=== PATIENT | male | born 1995 | race Caucasian/White ===

== ENCOUNTER 2020-10-19 10:15 | Emergency (ER) | payer OTHER, SELFPAY ==
[2020-10-19 10:16] VITALS: BP 143/91; PULSE 78; RESP 16; TEMP 36.2; O2SAT 100; BMI 27.0
--- NOTE | 2020-10-19 11:21 | EX.ED.DYSGE1 ---
HPI History of Present Illness Chief Complaint: Lower Extremity Injury Narrative Narrative: Patient presents with laceration of the left knee. He was chain sawing and lost control nicked his left knee area. He has a large laceration. He is able to ambulate has no bony pain. Tetanus is not up-to-date. PFSH PFSH Home Medications cephalexin 500 mg PO Q12 #6 cap 10/19/20 [Rx Last Taken Unknown] Allergy/AdvReac Type Severity Reaction Status Date / Time No Known Allergies Allergy Verified 10/19/20 10:17 ROS ROS ED ROS Narrative Past medical history: none Medications: Reviewed Social history: Noncontributory Review of systems: Musculoskeletal: Laceration as in HPI Skin: Laceration as in HPI Neurological: No weakness or paresthesias Hematologic: No easy bleeding or easy bruising EXAM Physical Exam Narrative Exam Narrative: Physical exam General: Patient does not appear in significant distress . Head: Normocephalic, Atraumatic Neck: No C-spine tenderness Cardiovascular: Normal distal pulses Back: Nontender, Normal Inspection. Extremities: The left knee region and lower shows a diagonal laceration that is about 8 cm, there are 2 other lacerations 1.5 centimeters each next to it. The lacerations do not invade the fascia there is no pain with movement of the knee joint there is no effusion. Patient can ambulate well. Skin: Laceration as above Neurological: Normal strength and sensation Const Vital Signs: 10/19/20 10:16 Temperature 97.1 F L Temperature Source Temporal Pulse Rate 78 Respiratory Rate 16 Blood Pressure 143/91 H Blood Pressure Mean 108 Pulse Ox 100 Oxygen Delivery Method Room Air MDM MDM MDM Narrative Medical decision making narrative: Wound was sutured. Tetanus was updated. Because of the nature of the wound I put the patient on small dose of antibiotics. Procedures Lacerations lac: Length: 4.33 in Depth: Skin Shape: Stellate Prep: Shkarrie-Clens Laceration repair: Debrideded, Irrigated, Lidocaine, Local and Skin sutures Number of Sutures/Noemi: 16 Suture Information: Ethilon and - (3-0) Comment: This is a complex laceration, wound edges were revised, a total of 16 of the 3-0 nylon sutures were placed. Discharge Plan Triage Chief Complaint: Lower Extremity Injury ED Provider: Steven Perkins Dx/Rx/DC Orders Clinical Impression: Laceration of leg Instructions: ED Laceration: All Closures Prescriptions: New cephalexin 500 mg capsule 500 mg PO Q12 Qty: 6 RF: 0 Referrals: Vladimir Delaney DO [NON-STAFF] - 10-14 Days suture removal
[2020-10-19] MEDS: Cephalexin 250 MG Capsule 500 MG PO (11:28)
[2020-10-19] MEDS: Diphth,Pertuss(Acell),Tet Vac 0.5 ML Vial IM (11:28)
[2020-10-19] MEDS: Lidocaine 1% (20 ml mdv) 20 ML Vial INFILT (11:29)
== END 2020-10-19 13:26 | disposition home or self-care (01) ==
LOC: ED 11:43
PROVIDERS: Emergency Provider Emergency Medicine; PCP Family Medicine
DX: S81.012A Laceration without foreign body, left knee, initial encounter (principal); W31.2XXA Contact with powered woodworking and forming machines, initial encounter
CPT/HCPCS: 13121; 90715; 96372; 99285

== ENCOUNTER 2025-01-24 13:40 | Emergency (ER) | payer SELFPAY ==
[2025-01-24 13:41] VITALS: BP 131/70; PULSE 63; RESP 16; TEMP 36.5; O2SAT 100; BMI 25.9
--- NOTE | 2025-01-24 14:08 | EX.ED.UPPERE ---
HPI History of Present Illness Chief Complaint: Upper Extremity Injury PFSH PFSH Medical History no medical history Home Medications ?Medication ?Instructions ?Recorded ?Last Taken ?Type cephalexin 500 mg capsule 500 mg PO Q12 #6 caps 10/19/20 Unknown Rx Allergy/AdvReac Type Severity Reaction Status Date / Time No Known Allergies Allergy Verified 01/24/25 13:43 Family History no significant family his Surgical History no surgical history Social History Smoking Status: Never smoker EXAM Physical Exam Const Vital Signs: 01/24/25 13:41 Temperature 97.7 F L Temperature Source Oral Pulse Rate 63 Respiratory Rate 16 Blood Pressure 131/70 H Blood Pressure Mean 90 Pulse Ox 100 Oxygen Delivery Method Room Air MDM MDM MDM Narrative Medical decision making narrative: Patient eloped prior to my evaluation. Discharge Plan Triage Chief Complaint: Upper Extremity Injury ED Provider: John Jaime Dx/Rx/DC Orders Prescriptions: No Action cephalexin 500 mg capsule 500 mg PO Q12 Qty: 6 0RF Primary Care Provider: Michael Lehman Referrals: Michael Lehman MD [Primary Care Provider, Medical] Print Language: Spanish Disposition Disposition: Elopement
--- OUTSIDE RECORDS SUMMARY | 2025-01-24 14:15 | XMS RPT_ITS | CCD ---
Author Organization [facility] Care Team Providers Care Site Auditor Name Role Phone ISIS BELL Attending Unavailable ISIS BELL Primary Care Unavailable ISIS BELL Admitting Unavailable TOSHIA KOHLI PAC Admitting Unavailable TOSHIA KOHLI PAC Attending Unavailable JOEL TOSHIA FAVIO Primary Care Unavailable Joel RIOJAS, Toshia Fisher Unavailable [facility], . [facility] office Unavailable Michael Lehman MD Unavailable Piedad Velasquez MA Unavailable Unavailable Percy Finn LPN Unavailable Unavailable Problems Active Problems Problem Classification Problem Date Documented Da te Episodic/Chronic Abdominal pain (6 sources) Right lower quadrant pain; Translations: [Right lower quadrant pain] Onset: 11-20-2022 Episodic Appendicitis and other appendiceal conditions (1 source) Unspecified acute appendicitis; Translations: [Unspecified acute appendicitis] Onset: 11-20-2022 Episodic Conditions associated with dizziness or vertigo (4 sources) Dizziness; Translations: [Dizziness and giddiness] 03-23-2014 Episodic Fracture of upper limb (4 sources) Closed fracture of phalanx or phalanges of hand, unspecified 11-20-2022 Episodic Immunizations and screening for infectious disease (4 sources) Immunization due; Translations: [Encounter for immunization] 02-23-2023 Episodic Past or Other Problems Problem Classification Problem Date Documented Da te Episodic/Chronic Unclassified (2 sources) Abdominal pain - The onset of the abdominal pain has been sudden and has been occurring in a persistent (Patient reports a constant dull pain with instances of a severe, sharp pain at times) pattern for 3 days. The course has been increasing. The pain is described as a moderate sharp pain and dull ache. The pain is located in the right lower quadrant and does not radiate. The symptoms are aggravated by motion but have no relieving factors. The symptoms have been associated with vomiting (Patient reports vomiting the day the pain started. States that the vomiting happened after the pain started.), while the symptoms have not been associated with bloating, bloody stools, chest pain, constipation, diarrhea, dysuria, fever or nausea. Note for Abdominal pain: Patient denies any previous abdominal surgeries 11-20-2022 Unclassified (2 sources) Dizziness - The onset of the dizziness has been acute and has been occurring in a persistent pattern for 1 week. The course has been increasing. The dizziness is characterized as lightheadedness. There has been associated headache (on occasion), upper respiratory infection symptoms (slight) and visual changes (pressure behind eyes.), while there has been no associated nausea, vomiting, fever, tinnitus, ear pain, ear fullness or falling episodes. Note for Dizziness: Started symptoms a few days after returning from a 10 day trip to [facility]. Had ear pain while flying. No fevers 03-23-2014 Unclassified (2 sources) Fractured Thumb - Pt here today because he got hit last evening with a softball. Ball hit him right on right thumb. Parents took him to [facility] this morning and they did x-rays and told mom to f/u here for broken right thumb. X-rays with pt. Thumb is swollen and has decreased ROM to that thumb. 07-24-2011 Results Test Name Value Interpretation Reference Range Facil ity OPERATIVE PROCEDURESon 11-24 OPERATIVE PROCEDURES [facility] OPERATIVE REPORT NAME ACCOUNT SEX AGE ADMIT DISCHARGE PT MED. RECORD# NUMBER DATE DATE TYPE CHARLI, [id number] Rosemary 26 11/20/22 11/20/22 2 RAYMON [id number] ROOM: [facility] DATE OF : 1995 DICTATING PHYSICIAN: Isis Bell DATE OF SURGERY: November 20, 2022 SURGEON: Isis Bell MD TRANSPORTATION EQUIPMENT PAINTER: MICHEL Sykes ANESTHESIOLOGIST: Linda Aggarwal CRNA ANESTHETIC: Local anesthesia 1:1 mixture of 0.25% Marcaine plain and 1% lidocaine with epinephrine, approximately 37 mL were used. PREOPERATIVE DIAGNOSIS: POSTOPERATIVE DIAGNOSES: 1. Acute appendicitis. 2. Appendicolith. OPERATION PERFORMED: Laparoscopic appendectomy. COMPLICATIONS: ESTIMATED BLOOD LOSS: Less than 5 mL. FLUIDS GIVEN: 1000 mL of crystalloid. SPECIMEN: Vermiform appendix to Pathology. DISPOSITION: Stable to recovery. INDICATIONS: Raymon Augustin is a 26-year-old gentleman who came to the emergency room with abdominal pain and findings worrisome for appendicitis. DESCRIPTION OF OPERATION: After informed consent, intravenous fluids, and antibiotics, he was taken to the operating room. The patient was placed on the table in the supine position with adequate padding at pressure points. He was given anesthesia, prepped and draped in the usual sterile fashion and timeout and verification done Page 1 of 2 CHARLI RAYMON Operative Report RAYMON AUGUSTIN : 1995 appropriately. The abdomen was palpated, demarcated, and locally anesthetized at the trocar sites and the infraumbilical trocar placed with good visualization. The abdomen was gently insufflated and viewed with the laparoscope, and it was clear that there was an extremely dilated edematous, erythematous, and indurated vermiform appendix surrounded by omentum stuck up again the right lower quadrant wall. The suprapubic and left lower quadrant trocars were placed through anesthetized sites with good visualization. Then, the vermiform appendix was gently peeled away from the omentum and from the abdominal wall, and the base exposed nicely. A window was created with the [place] dissector. This window was at the base of the vermiform appendix, and through this the stapling/cutting device was placed, clamped, held for 1 minute and then fired. Then, the mesoappendiceal structures were likewise clamped, held for 1 minute, and then fired with the stapling/cutting device, and there appeared to be excellent hemostasis. The vermiform appendix was placed in an EndoCatch bag, placed to the side, and then the surgical site carefully inspected for excellent hemostasis. Short bursts of antibiotic irrigation were used and suctioned, and there was excellent hemostasis. The table was then leveled, and the trocar sites and the EndoCatch bag were removed with good visualization. The infraumbilical fascial edges were nicely approximated with #1 PDS and #1 Vicryl sutures, skin edges were nicely approximated with inverted interrupted 2-0 PDS through subcutaneous and subcuticular layers followed by Benzoin and Steri-Strips and sterile dressings. The patient tolerated the procedure well, was awakened, and will be sent to recovery room in good condition. The case will be discussed with the patient and spouse when he is more awake and alert. Pathology will be followed in my office, and followup wound care will be per my office. Dictated By: Isis Bell MD 11/20/22 18:58 JOB #: [id number] Transcribed By: am 11/21/22 07:54 Electronically signed by: E-Sign Dr. Isis Bell MD 11/24/22 18:48 Page 2 of 2 RAYMON AUGUSTIN Operative Report Normal [facility] CBC + DIFFon 11-20-2022 Baso # 0.00 x10EE3/UL Normal 0.00 - 0.10 [facility] Comment on above: Performed By: #### 2 [id number] #### [facility],[address] [place] [address] 17408 Basophils/100 WBC (Bld) 0.2 % Normal 0.0 - 2.0 [facility] Comment on above: Performed By: #### 2 45600 #### [facility],[address] [place] [address] CBC + DIFF Normal [facility] Comment on above: Result Comment: CBC- COMPLETE BLOOD COUNT Performed By: #### 2 55602 #### [facility],[address] [place] [address] EO # 0.10 x10EE3/UL Normal 0.00 - 0.50 [facility] Comment on above: Performed By: #### 2 55981 #### [facility],[address] [place] [address] 58636 Eosinophils/100 WBC (Bld) 0.6 % Normal 0.0 - 7.0 [facility] Comment on above: Performed By: #### 2 67119 #### [facility],[address] [place], [place] [id number] Erythrocyte distribution width (RBC) [Ratio] 12.8 % Normal 12.0 - 15.6 [facility] Comment on above: Performed By: #### 2 08830 #### [facility],[address] [place] [address] Hematocrit (Bld) [Volume fraction] 46.7 % Normal 40.0 - 52.0 [facility] Comment on above: Performed By: #### 2 89248 #### [facility],[address] [place] [address] Hemoglobin (Bld) [Mass/Vol] 16.0 g/dL Normal 13.0 - 17.5 [facility] Comment on above: Performed By: #### 2 37723 #### [facility],[address] [place] [address] Lymph # 1.20 x10EE3/UL Normal 0.80 - 2.80 [facility] Comment on above: Performed By: #### 2 40738 #### [facility],[address] [place] [address] Lymphocytes/100 WBC (Bld) 10.5 % Low 20.0 - 45.0 [facility] Comment on above: Performed By: #### 2 81966 #### [facility],[address] [place] [address] MANUAL DIFF N/A Normal [facility] Comment on above: Performed By: #### 2 23952 #### [facility],[address] [place] [address] MCH (RBC) [Entitic mass] 30 pg Normal 27 - 33 [facility] Comment on above: Performed By: #### 2 86008 #### [facility],[address] [place] [address] MCHC 34 X10 3 Normal 32 - 36 [facility] Comment on above: Performed By: #### 2 69579 #### [facility],[address] [place], [place] [address] MCV (RBC) [Entitic vol] 89 fL Normal 81 - 98 [facility] Comment on above: Performed By: #### 2 68261 #### [facility],[address] [place] [address] [place] # 0.90 x10EE3/UL Normal 0.20 - 1.00 [facility] Comment on above: Performed By: #### 2 16953 #### [facility],[address] [place] [address] MONOS % 8.5 % Normal 0.0 - 10.0 [facility] Comment on above: Performed By: #### 2 00146 #### [facility],[address] [place] [address] Morphology Odioln (Bld) [Interp] N/A Normal [facility] Comment on above: Performed By: #### 2 10867 #### [facility],[address] [place] [address] Neut # 8.80 x10EE3/UL High 1.50 - 7.10 [facility] Comment on above: Performed By: #### 2 97022 #### [place] [address] Neutrophils/100 WBC (Bld) 80.2 % High 46.0 - 76.0 [facility] Comment on above: Performed By: #### 2 77391 #### [place] [address] PLATELET 224 x10EE3/UL Normal 150 - 450 [facility] Comment on above: Performed By: #### 2 65455 #### [facility],[address] [place] [address] Platelet mean volume (Bld) [Entitic vol] 7.6 fL Normal 6.4 - 10.5 [facility] Comment on above: Result Comment: AUTO MATED DIFFERENTIAL Performed By: #### 2 25647 #### [place] [address] RBC 5.24 x 10EE6/UL Normal 4.50 - 6.00 [facility] Comment on above: Performed By: #### 2 87734 #### [facility],[address],[place] [address] WBC 11.0 x 10EE3/UL High 4.5 - 10.8 [facility] Comment on above: Performed By: #### 2 57282 #### [facility],[address] [place] [address] CMP with eGFRon 11-20-2022 AGE 26 years Normal [facility] Comment on above: Performed By: #### 2 75325 #### [facility],[address] [place] [address] Albumin [Mass/Vol] 4.4 g/dL Normal 3.4 - 5.0 [facility] Comment on above: Performed By: #### 2 91149 #### [facility],[address] [place] [address] 37677 Albumin/Globulin [Mass ratio] 1.1 {ratio} Normal 0.9 - 1.6 [facility] Comment on above: Performed By: #### 2 48083 #### [facility],[address] [place] [address] 76288 ALK PHOS 75 U/L Normal 46 - 116 [facility] Comment on above: Performed By: #### 2 39698 #### [facility],[address] [place] [address] 90359 ALT [Catalytic activity/Vol] 29 U/L Normal 16 - 63 [facility] Comment on above: Performed By: #### 2 89192 #### [facility],[address] [place] [address] 61212 Anion gap [Moles/Vol] 15 mmol/L Normal 10 - 20 [facility] Comment on above: Performed By: #### 2 30814 #### [facility],[address] [place] [address] 38932 AST [Catalytic activity/Vol] 12 U/L Low 15 - 37 [facility] Comment on above: Performed By: #### 2 18565 #### [facility],[address] [place] [address] 84713 B/C RATIO 14 ratio Normal 0 - 30 [facility] Comment on above: Performed By: #### 2 15460 #### [facility],[address] [place] [address] 03042 Bilirubin [Mass/Vol] 1.5 mg/dL High 0.2 - 1.0 [facility] Comment on above: Performed By: #### 2 03210 #### [facility],[address] [place] [address] 74800 Calcium [Mass/Vol] 9.6 mg/dL Normal 8.5 - 10.1 [facility] Comment on above: Performed By: #### 2 40861 #### [facility],[address] [place] [address] 09681 Chloride [Moles/Vol] 96 mmol/L Low 98 - 107 [facility] Comment on above: Performed By: #### 2 28685 #### [facility],[address] [place] [address] 97916 CMP with eGFR Normal [facility] Comment on above: Result Comment: COMP REHENSIVE METABOLIC PANEL Performed By: #### 2 36573 #### [facility],[address] [place] [address] 39917 CO2 [Moles/Vol] 27.8 mmol/L Normal 21.0 - 32.0 [facility] Comment on above: Performed By: #### 2 12826 #### [facility],[address] [place] [address] 20883 Creatinine [Mass/Vol] 0.94 mg/dL Normal 0.70 - 1.30 [facility] Comment on above: Performed By: #### 2 66952 #### [facility],[address] [place] [address] 57774 GFR/1.73 sq M.predicted among non-blacks MDRD (S/P/Bld) [Vol rate/Area] mL/min/{1.73_m2} Normal 60 - 999 [facility] Comment on above: Performed By: #### 2 55602 #### [facility],[address] [place] [address] 51358 Result Comment: ACCO RDING TO THE NATIONAL KIDNEY DISEASE EDUCATION PROGRAM(NKDE), A NORMAL eGFR IS A VALUE GREATER THAN OR EQUAL TO 60 ML/MIN/1.73 SQ METERS. CHRONIC KIDNEY DISEASE: <60mL/MIN/1.73 SQ METERS KIDNEY FAILURE: <15mL/MIN/1.73 SQ METERS THIS TEST SHOULD ONLY BE USED FOR PATIENTS 18 YEARS OF AGE AND OLDER. Globulin (S) [Mass/Vol] 3.9 g/dL High 1.5 - 3.8 [facility] Comment on above: Performed By: #### 2 95655 #### [facility],[address] [place] [address] 96948 Glucose [Mass/Vol] 112 mg/dL High 74 - 106 [facility] Comment on above: Performed By: #### 2 30231 #### [facility],[address] [place] [address] 44988 Potassium [Moles/Vol] 3.8 mmol/L Normal 3.5 - 5.1 [facility] Comment on above: Performed By: #### 2 24135 #### [facility],[address] [place] [address] 75404 Protein [Mass/Vol] 8.3 g/dL High 6.4 - 8.2 [facility] Comment on above: Performed By: #### 2 06180 #### [facility],[address] [place] [address] 07943 Sodium [Moles/Vol] 135 mmol/L Low 136 - 145 [facility] Comment on above: Performed By: #### 2 95709 #### [facility],[address] [place] [address] 22188 Urea nitrogen [Mass/Vol] 13 mg/dL Normal 7 - 18 [facility] Comment on above: Performed By: #### 2 58720 #### [facility],[address] [place] [address] ABDOMEN/PELVIS [facility] 2022 CT ABDOMEN/PELVIS [address] [address] Patient: RAYMON AUGUSTIN Phone#: : 1995 Age: 26 Gender: M Pt. Type: Out Account: [id number] Location: Ordering: TOSHIA KOHLI Exam Date: 11/20/2022/14:32 Family Phys: Charge Code: [id number] Physician: Grafton Order #: [id number] Dose#: 12.60 mGy PROCEDURE: CT ABDOMEN/PELVIS WITH CONTRAST COMPARISON: None. INDICATIONS: Abdominal pain. TECHNIQUE: After obtaining the patient's consent, CT images were created with non-ionic intravenous contrast and oral contrast material. All CT scans at this facility use dose modulation, iterative reconstruction, and/or weight based dosing when appropriate to reduce radiation dose to as low as reasonably achievable. IV CONTRAST: Omnipaque 350,80ml TOTAL DOSE: 12.60 CTDIvol(mGy) FINDINGS: LIVER: Normal. No enlargement, atrophy, abnormal density, or significant focal lesion. BILIARY: Gallbladder is present and distended. PANCREAS: Normal. No lesion, fluid collection, ductal dilatation, or atrophy. SPLEEN: Calcified granulomas in the spleen KIDNEYS: Kidneys enhance and excrete contrast symmetrically. No hydronephrosis. ADRENALS: Normal. No mass or enlargement. AORTA/VASCULAR: No aortic aneurysm. RETROPERITONEUM: Normal. No mass or adenopathy. BOWEL/MESENTERY: Appendix is dilated measuring 1.5 cm. There is a large appendicolith at the origin measuring 1.2 cm. There is periappendiceal stranding and enhancement of the appendix. Findings consistent with acute appendicitis. No bowel obstruction or dilatation. Oral contrast is seen in the stomach, small and large bowel. Oral contrast reaches the transverse colon. ABDOMINAL WALL: Normal. No mass or hernia. URINARY BLADDER: Normal. No visible focal wall thickening, lesion, or calculus. PELVIC NODES: Normal. No adenopathy. PELVIC ORGANS: Small amount of fluid layering in the pelvis, likely reactive secondary to the appendix inflammation. No visible mass. Pelvic organs appropriate for patient age. Continued Report - Page 2 of 2 Patient: RAYMON AUGUSTIN Phone#: : 1995 Age: 26 Gender: M Pt. Type: Out Account: [id number] Location: Ordering: TOSHIA KOHLI Exam Date: 11/20/2022/14:32 Family Phys: Charge Code: [id number] Physician: Grafton Order #: [id number] Dose#: 12.60 mGy BONES: Normal. No bony lesion or fracture. LUNG BASES: Normal. No visible pulmonary or pleural disease. OTHER: Negative. CONCLUSION: 1. Acute appendicitis large amount of periappendiceal stranding, suggesting imprending rupture. This report was communicated by telephone to Toshia Kohli at the dictation time shown below. Dictated by: Mary Carmen Mckeon MD on 11/20/2022 at 15:13 Approved by: Mary Carmen Mckeon MD on 11/20/2022 at 15:40 Normal [facility] Emergency Department Summary on 10-19-2020 Emergency Department Summary [facility] Medical Records Department [address] [place] [address] Emergency Department Summary 10/19/20 MR#: [id number] Acct: [id number] Name: HERVE AUGUSTIN Rep #: [id number] : 1995 24 From: Steven Perkins MD PCP: Dr. Michael Lehman MD Status:DEP ER Location: ED HPI History of Present Illness Chief Complaint: Lower Extremity Injury Narrative Narrative: Patient presents with laceration of the left knee. He was chain sawing and lost control nicked his left knee area. He has a large laceration. He is able to ambulate has no bony pain. Tetanus is not up-to-date. PFSH PFSH Home Medications cephalexin 500 mg PO Q12 #6 cap 10/19/20 [Rx Last Taken Unknown] Allergy/AdvReac Type Severity Reaction Status Date / Time No Known Allergies Allergy Verified 10/19/20 10:17 ROS ROS ED ROS Narrative Past medical history: none Medications: Reviewed Social history: Noncontributory Review of systems: Musculoskeletal: Laceration as in HPI Skin: Laceration as in HPI Neurological: No weakness or paresthesias Hematologic: No easy bleeding or easy bruising EXAM Physical Exam Narrative Exam Narrative: Physical exam General: Patient does not appear in significant distress . Head: Normocephalic, Atraumatic Neck: No C-spine tenderness Cardiovascular: Normal distal pulses Back: Nontender, Normal Inspection. Extremities: The left knee region and lower shows a diagonal laceration that is about 8 cm, there are 2 other lacerations 1.5 centimeters each next to it. The lacerations do not invade the fascia there is no pain with movement of the knee joint there is no effusion. Patient can ambulate well. Skin: Laceration as above Neurological: Normal strength and sensation Const Vital Signs: 10/19/20 10:16 Temperature 97.1 F L Temperature Source Temporal Pulse Rate 78 Respiratory Rate 16 Blood Pressure 143/91 H Blood Pressure Mean 108 Pulse Ox 100 Oxygen Delivery Method Room Air MDM MDM MDM Narrative Medical decision making narrative: Wound was sutured. Tetanus was updated. Because of the nature of the wound I put the patient on small dose of antibiotics. Procedures Lacerations lac: Length: 4.33 in Depth: Skin Shape: Stellate Prep: Shure-Clens Laceration repair: Debrideded, Irrigated, Lidocaine, Local and Skin sutures Number of Sutures/Finley: 16 Suture Information: Ethilon and - (3-0) Comment: This is a complex laceration, wound edges were revised, a total of 16 of the 3-0 nylon sutures were placed. Discharge Plan Triage Chief Complaint: Lower Extremity Injury ED Provider: Steven Perkins Dx/Rx/DC Orders Clinical Impression: Laceration of leg Instructions: ED Laceration: All Closures Prescriptions: New cephalexin 500 mg capsule 500 mg PO Q12 Qty: 6 RF: 0 Referrals: Vladimir Delaney, [NON-STAFF] - 10-14 Days suture removal What to do if you have Problems For any increased pain, shortness of breath, bleeding, nausea or vomiting, chest pain, or any unexpected problems, contact your Primary Care Provider. Call [facility] ([phone]) or report to the closest Emergency Room. Call 911 if necessary. 10/19/20 1437 Cosigner Signature (if applicable): CC: Dr. Michael Lehman MD Signed Normal [facility] Vital Signs Date Time Vital Sign Value Performing Clinician Facility 11-20-2022 09:53-0400 Body height 165.1 cm Piedad Velasquez MA [facility] 11-20-2022 09:53-0400 Body mass index (BMI) [Ratio] 28.79 kg/m2 Piedad Velasquez MA [facility] 11-20-2022 09:53-0400 Body surface area Derived from formula 1.86 m2 Piedad Velasquez MA [facility] 11-20-2022 09:53-0400 Body temperature 99.1 [degF] Piedad Velasquez MA [facility] Comment on above: Method: Tympanic 11-20-2022 09:53-0400 Body weight 78.47 kg Piedad Velasquez MA [facility] 11-20-2022 09:53-0400 Diastolic blood pressure 81 mm[Hg] Piedad Velasquez MA [facility]. Comment on above: Patient Position: Si tting; Cuff Location: Left Arm; Cuff Size: Standard 11-20-2022 09:53-0400 Heart rate 90 /min Piedad Velasquez MA [facility]; [facility]. Comment on above: Pattern: Regular 11-20-2022 09:53-0400 Systolic blood pressure 125 mm[Hg] Piedad Velasquez MA [facility]. Comment on above: Patient Position: Si tting; Cuff Location: Left Arm; Cuff Size: Standard 03-23-2014 10:37-0500 Body height 165.1 cm Toshia Kohli PA-C Work Phone: [facility]; [facility]. 03-23-2014 10:37-0500 Body mass index (BMI) [Percentile] Per age and sex 75 % Toshia Kohli PA-C Work Phone: [facility]; [facility]. 03-23-2014 10:37-0500 Body mass index (BMI) [Ratio] 23.63 kg/m2 Toshia Kohli PA-C Work Phone: [employer]; [employer]. 03-23-2014 10:37-0500 Body surface area Derived from formula 1.71 m2 Toshia Kohli PA-C Work Phone: [employer].; [employer] 03-23-2014 10:37-0500 Body temperature 97.4 [degF] Toshia Kohli PA-C Work Phone: [employer]; [employer]. Comment on above: Method: Tympanic 03-23-2014 10:37-0500 Body weight 64.41 kg Toshia Kohli PA-C Work Phone: [employer]; [employer] 07-24-2011 15:31-0400 Body height 156.21 cm Toshia Kohli PA-C Work Phone: [employer]; [employer] 07-24-2011 15:31-0400 Body mass index (BMI) [Percentile] Per age and sex 64 % Toshia Kohli PA-C Work Phone: [employer]; [employer] 07-24-2011 15:31-0400 Body mass index (BMI) [Ratio] 20.63 kg/m2 Toshia Kohli PA-C Work Phone: [employer]; [employer]. 07-24-2011 15:31-0400 Body surface area Derived from formula 1.48 m2 Toshia Kohli PA-C Work Phone: [employer]; [employer] 07-24-2011 15:31-0400 Body temperature 97.7 [degF] Toshia Kohli PA-C Work Phone: [employer]; [employer] 07-24-2011 15:31-0400 Body weight 50.35 kg Toshia Kohli PA-C Work Phone: [employer]; [employer] Encounters Encounter Date Encounter Type Care Provider Facility Start: 02-23-2023 End: 02-23-2023 Orders Toshia Kohli PA-C Work Phone: [employer] Start: 11-20-2022 End: 11-20-2022 ambulatory ISIS BELL [facility] Start: 11-20-2022 End: 11-20-2022 ambulatory TOSHIA KOHLI [facility] Start: 11-20-2022 End: 11-20-2022 Office outpatient new 30 minutes Toshia Kohli PA-C Work Phone: [employer] Start: 03-23-2014 End: 03-23-2014 Office outpatient visit 15 minutes Toshia Kohli PA-C Work Phone: [employer] Start: 07-24-2011 End: 07-24-2011 Patient encounter procedure Toshia Kohli PA-C Work Phone: [employer] Procedures Date Procedure Procedure Detail Performing Clinician Start: 11-20-2022 End: 11-21-2022 Ct abdomen & pelvis w/contrast material Toshia J Kohli PA-C Work Phone: Immunizations Immunization Date Immunization Notes Care Provider Fa cility 02-23-2023 measles, mumps and rubella virus vaccine Toshiaruss Kohli PA-C Work Phone: [employer]; [employer] Comment on above: Site: Right [facility] neptalien: * MMR Vaccine (Measles, Mumps, and Rubella) (09/17/20) Social History Date Type Detail Facility Tobacco Use: Tobacco Use: ; Never smoker. [employer].; [employer] Tobacco/Smoke Exposure: Tobacco/ Smoke Exposure: ; None. [employer].; [employer] [facility].; [employer] Work Phone: Never smoked tobacco [facility].; [employer] [facility]. Work Phone: None [facility].; [facility] Work Phone: Clinical Note 11-24-2022 Note Date & Type Note Facility 11-24-2022 Note [facility] CONSULTATION REPORT NAME ACCOUNT SEX AGE ADMIT DISCHARGE PT MED. RECORD# NUMBER DATE DATE TYPE CHARLI, [id number] Rosemary 26 11/20/2022 11/20/2022 2 RAYMON [id number] ROOM: [facility] DATE OF : 1995 DICTATING PHYSICIAN: Isis Bell DATE OF CONSULTATION: November 20, 2022 REASON FOR CONSULTATION: Abdominal pain. HISTORY OF PRESENT ILLNESS: Raymon Augustin is a 26-year-old gentleman who has had abdominal pain since Sunday. He noted the pain Sunday evening, and it is now localized in the right lower quadrant. It is worsened with movement and improved with holding still. His last bowel movement was this morning and was a small amount. No bloody stool or black tarry stool. He lost his appetite. His last solid food was yesterday, and today he had a small amount of liquids. He came to the Emergency Room and was found to have abdominal pain. The pain is most severe in the right lower quadrant. He was found to have a leukocytosis with a left shift. White blood cell count is 11,000 with 80.2% neutrophils and 10.5% lymphocytes. A CT was obtained and showed a dilated appendix of 1.5 cm with a large appendicolith at the origin measuring 1.2 cm. There is periappendiceal stranding and enhancement of the appendix. Findings are consistent with acute appendicitis. There is no evidence of bowel obstruction. There is a small amount of fluid layering in the pelvis, likely secondary to appendiceal inflammation (see report). I explained the findings to the patient and spouse. I have explained observation and the risks of perforation and appendiceal infection spreading to other areas, and the possibility of abscess formation. I have explained surgery. I have explained laparoscopic versus open surgery and the risks such as bleeding, pain, infection, scarring, and abscess formation. I have explained if it is ruptured he may need open exploration and possible drain placement, and he would stay in the hospital for a longer recovery period. I have explained the postoperative instructions, restrictions, activities, diet, medications and follow-up plan. They appear to understand the options, wish to proceed, and have no further questions. I have explained that initially we would look with a laparoscope after he has been prepped and is under anesthesia. I have explained the options and the alternatives. They concur and have no further questions. PAST MEDICAL HISTORY: No rheumatic heart disease, murmurs, arrhythmias, seizures, bleeding diathesis or anesthetic problems. PAST SURGICAL HISTORY: Denied. CURRENT MEDICATIONS: Denied. Page 1 of 2 RAYMON AUGUSTIN [employer] Report RAYMON AUGUSTIN : 1995 ALLERGIES: No known medical allergies. FAMILY HISTORY: No carcinoma. No bleeding diathesis. No anesthetic problems. SOCIAL HISTORY: The patient is . He works in the logging industry. Spouse is present and is attentive. Smoking: None. Ethanol: None. REVIEW OF SYSTEMS: See above; otherwise noncontributory. No cardiac, pulmonary, thyroid, liver or other medical issues. PHYSICAL EXAMINATION: GENERAL: Pleasant, alert gentleman, muscular, talkative, in no acute distress. SKIN: Normal texture and turgor. VITAL SIGNS: Temperature is 97.8, pulse 104, respiratory rate 18, blood pressure 132/81, and oxygen saturation 100% on room air. HEENT: EOMI, nonicteric. Mucosal surfaces are slightly dry. NECK: No JVD. LUNGS: Chest is clear bilaterally. No rales or rhonchi. HEART: Heart is a regular rate and rhythm. No gallops, rubs or murmurs. ABDOMEN: Abdomen is nondistended. He has marked tenderness at McBurney's point with both rebound and guarding. Positive Rovsing's. Positive obturator. Positive psoas. Positive heel tap. No flank tenderness. No hepatosplenomegaly. No thrill. No bruit. No pulsatile mass. He is not grossly distended. EXTREMITIES: Calves are unremarkable. Fair radial upstroke. NEUROLOGIC: Examination is nonfocal. ASSESSMENT: Generally healthy 26-year-old gentleman who now has a 2-day history of abdominal pain localizing to the right lower quadrant. The pain has been worsening and is worsened with movement and with palpation. He is found to have peritoneal signs on physical examination. White blood cell count is elevated along with a left shift on the differential, and CT is worrisome for appendicitis, possibly approaching perforation. RECOMMENDATIONS: He appears to understand my recommendations. I have recommended fluids, antibiotics, and going to the operating room as soon as we are ready. I have explained the options and the alternatives. He has no further questions. Spouse has no further questions. They wish to proceed as outlined. Staff has been notified. Dictated By: Isis Bell MD 11/20/2022 17:18 JOB #: [id number] Transcribed By: mary 11/21/2022 06:04 Electronically signed by: E-Sign Dr. Isis Bell MD 11/24/22 18:48 Page 2 (more content not included)... [facility] Summary Purpose Family History No Family History Records FoundNo Family History Records Found Advance Directives No Advanced Directives Records FoundNo Advanced Directives Records Found Additional Source Comments (unrecognized sect ion and content) No Status Records FoundNo Status Records Found INFORMATION SOURCE (unrecogn ized section and content) DATE CREATED AUTHOR 03/30/2021 [facility] DATE CREATED AUTHOR AUTHOR'S ORGANIZ ATION 11/26/2022 [facility] FOR RECORDS PERTAINING TO PATIENTS WHO ARE OR HAVE BEEN ENROLLED IN A CHEMICAL DEPENDENCY/SUBSTANCEABUSE PROGRAM, SOME INFORMATION MAY BE OMITTED. This clinical summary was aggregated from multiple sources. Caution should be exercised in using it in the provision of clinical care. This summary normalizes information from multiple sources, and as a consequence, information in this document may materially change the coding, format and clinical context of patient data. In addition, data may be omitted in some cases. CLINICAL DECISIONS SHOULD BE BASED ON THE PRIMARY CLINICAL RECORDS. [employer] provides no warranty or guarantee of the accuracy or completeness of information in this document.
== END 2025-01-24 14:00 | disposition left against medical advice (07) ==
LOC: ED 14:12
PROVIDERS: PCP Family Medicine
DX: Z00.00 Encounter for general adult medical examination without abnormal findings (principal)
CPT/HCPCS: 99282